=== PATIENT | male | born 1970 | race Caucasian/White ===

== ENCOUNTER 2017-09-13 21:28 | Emergency (ER) | payer OTHER ==
[~2017-09-13] VITALS: Ht 172.7 cm; Wt 72.6 kg
[2017-09-13] MEDS ORDERED: SKELAXIN800 MG PO (22:37)
[2017-09-13] MEDS ORDERED: KETO10TA2 PO (22:37)
== END 2017-09-13 22:52 | disposition home or self-care (01) ==
LOC: ER 21:28
DX: M62.838 Other muscle spasm (principal); M54.5 Low back pain

== ENCOUNTER 2020-02-15 20:27 | Emergency (ER) | payer OTHER ==
[~2020-02-15] VITALS: Ht 172.7 cm; Wt 74.8 kg
[~2020-02-15 20:27] MED LIST: KETO10TA2 PO; SKELAXIN800 MG PO
[2020-02-15] MEDS ORDERED: COZAAR100 MG (20:37)
[2020-02-15] MEDS ORDERED: NORVASC5 MG (20:37)
== END 2020-02-15 23:25 | disposition home or self-care (01) ==
LOC: ER 20:27
DX: B34.9 Viral infection, unspecified (principal); Z03.818 Encounter for observation for suspected exposure to other biological agents ruled out

== ENCOUNTER 2024-10-02 18:44 | Emergency (ER) | payer OTHER ==
[~2024-10-02] VITALS: Ht 172.7 cm; Wt 76.2 kg
[~2024-10-02 18:44] MED LIST changes: +COZAAR100 MG; +NORVASC5 MG
[2024-10-02] MEDS ORDERED: MAXITROL EYE DRO5 ML OP ×2 (19:42→19:44)
== END 2024-10-02 20:27 | disposition home or self-care (01) ==
LOC: ER 18:49
DX: H00.025 Hordeolum internum left lower eyelid (principal); H00.015 Hordeolum externum left lower eyelid; I10 Essential (primary) hypertension

== ENCOUNTER 2025-02-10 18:32 | Emergency (ER) | payer OTHER ==
[~2025-02-10] VITALS: Ht 172.7 cm; Wt 76.2 kg
[~2025-02-10 18:32] MED LIST changes: +MAXITROL EYE DRO5 ML OP
[2025-02-10 19:11] VITALS: BP 134/76; O2SAT 97
[2025-02-10] MEDS ORDERED: KETOROLAC TROMETHAMINE 60 MG VIAL IM ONE ×2 (19:30→20:05)
[2025-02-10] MEDS ORDERED: KETO10TA2 PO (22:00)
== END 2025-02-10 23:15 | disposition home or self-care (01) ==
LOC: ER 18:33
DX: M79.641 Pain in right hand (principal); I10 Essential (primary) hypertension